=== PATIENT | male | born 1985 | race African-American/Black ===

== ENCOUNTER 2019-08-06 19:58 | Emergency (ER) | payer SELFPAY ==
[~2019-08-06] VITALS: Ht 165.1 cm; Wt 79.3 kg
[2019-08-06 20:42] LABS: ANION GAP 5 mmol/L (5-15); CALCIUM 8.8 mg/dL (8.5-10.1); CHLORIDE 108 mmol/L (98-107); SALICYLATE LEVEL 4.6 mg/dL (2.8-20.0)
[2019-08-06 20:50] LABS: ALANINE AMINOTRANSFERASE 15 U/L (12-78); ALKALINE PHOSPHATASE 74 U/L (45-117); BILIRUBIN,TOTAL 0.3 mg/dL (0.2-1.0); CREATININE 1.21 mg/dL (0.7-1.3)
[2019-08-06 21:01] LABS: BASOPHILS # (AUTO) 0.05 x10^3/uL (0-0.1); BASOPHILS % (AUTO) 1 % (0-1); EOSINOPHILS # (AUTO) 0.16 x10^3/uL (0-0.4); EOSINOPHILS % (AUTO) 2 % (1-7); LYMPHOCYTES # (AUTO) 2.76 x10^3/uL (1-3.4); LYMPHOCYTES % (AUTO) 25 % (22-44); MD NO; MEAN CORPUSCULAR HEMOGLOBIN 29.8 pg (27.5-34.5); MEAN CORPUSCULAR HGB CONC 33.6 g/dL (33.2-36.2); MEAN CORPUSCULAR VOLUME 88.8 fL (81-97); MEAN PLATELET VOLUME 8.9 fL (7.4-10.4); MONOCYTES # (AUTO) 0.58 x10^3/uL (0.2-0.8); MONOCYTES % (AUTO) 5 % (2-9); NEUTROPHILS # (AUTO) 7.33 x10^3/uL (1.8-6.8); NEUTROPHILS % (AUTO) 67 % (42-75); PLATELET COUNT 252 x10^3/uL (130-400); RED BLOOD COUNT 4.76 x10^6/uL (4.38-5.82); RED CELL DISTRIBUTION WIDTH 15.7 % (9.4-14.8)
--- NOTE | 2019-08-06 21:14 | NUR ---
PT TO ROOM AT THIS TIME.
--- NOTE | 2019-08-06 23:16 | NUR ---
[employer] OFFICER: NEHEMIAH PAGED PER DR. PLASCENCIA. TELEROBOT [id number] PLACED IN PT'S ROOM, ER 2.
--- NOTE | 2019-08-06 23:40 | NUR ---
BAR ASSISTANT: CORNELIA FROM [employer] CALLED, ETA 45-60 MIN FOR EVALUATION. PRIMARY RN OSVALDO AND ERP DR. PLASCENCIA NOTIFIED.
[2019-08-07 00:02] LABS: AMPHETAMINE SCREEN, URINE Negative (Negative); BARBITURATE SCREEN, URINE Negative (Negative); BENZODIAZEPINE SCREEN, URINE Negative (Negative); CANNABINOID SCREEN, URINE Positive (Negative); COCAINE SCREEN, URINE Negative (Negative); METHADONE SCREEN, URINE Negative (Negative); OPIATE SCREEN, URINE Negative (Negative)
--- NOTE | 2019-08-07 00:27 | NUR ---
REPORT GIVEN TO [employer] PROVIDER
--- NOTE | 2019-08-07 01:27 | NUR ---
Break RN: re-evaluation done. patient discharged with instruction. patient signed discharge paper and went back to sleep. security notified.
[2019-08-07 01:32] VITALS: BP 134/87
== END 2019-08-07 01:34 | disposition home or self-care (01) ==
LOC: ED 08-07 01:33
DX: F41.1 Generalized anxiety disorder (principal); Z72.9 Problem related to lifestyle, unspecified; F17.210 Nicotine dependence, cigarettes, uncomplicated
CPT/HCPCS: 36415; 80053; 80307; 85025; 99283

== ENCOUNTER 2019-08-07 14:48 | Emergency (ER) | payer SELFPAY ==
[~2019-08-07] VITALS: Ht 165.1 cm; Wt 80.0 kg
--- NOTE | 2019-08-07 15:12 | NUR ---
pt on gurney and in gown. pt is being seen here today for bilateral foot pain. pt states has been gouing on for 1 day. no obvious deformities or swelling noted.
[2019-08-07] MEDS ORDERED: KETOCONAZOLE CRM 2%, 15GM TP SCH (16:00)
--- NOTE | 2019-08-07 16:18 | NUR ---
Late Entry: Task RN: Pt resting in gurney, NAD, Skin warm and dry, WNL for ethnicity. RESP WNL. WCTM. MAEx4
[2019-08-07 17:15] VITALS: BP 132/83
--- NOTE | 2019-08-07 17:18 | NUR ---
Patient/Caregiver given discharge instructions and they have confirmed that they understand the instructions. Patient ambulatory with steady gait. Denies additional questions at this time.
== END 2019-08-07 17:23 | disposition home or self-care (01) ==
LOC: ED 16:33
DX: B35.3 Tinea pedis (principal); M79.671 Pain in right foot; M79.672 Pain in left foot; F17.200 Nicotine dependence, unspecified, uncomplicated
CPT/HCPCS: 71045; 99283

== ENCOUNTER 2019-08-16 07:48 | Emergency (ER) | payer SELFPAY ==
[~2019-08-16] VITALS: Ht 165.1 cm; Wt 77.4 kg
[2019-08-16 07:50] VITALS: BP 156/93
== END 2019-08-16 08:19 | disposition home or self-care (01) ==
LOC: ED 08:13
DX: J45.909 Unspecified asthma, uncomplicated (principal); M54.2 Cervicalgia; G89.29 Other chronic pain; Z76.0 Encounter for issue of repeat prescription; F17.200 Nicotine dependence, unspecified, uncomplicated
CPT/HCPCS: 93005; 99283

== ENCOUNTER 2019-08-16 18:53 | Emergency (ER) | payer SELFPAY ==
[~2019-08-16] VITALS: Ht 165.1 cm; Wt 79.2 kg
[2019-08-16 18:57] VITALS: BP 127/77
== END 2019-08-16 19:31 | disposition home or self-care (01) ==
LOC: ED 19:10
DX: B35.3 Tinea pedis (principal)
CPT/HCPCS: 99281